=== PATIENT | male | born 1960 | race African-American/Black ===

== ENCOUNTER 2017-01-16 13:13 | Inpatient (IN) | payer MEDICARE, MEDICAID ==
[~2017-01-16] VITALS: Ht 170.2 cm; Wt 128.4 kg
[~2017-01-16 13:13] MED LIST: ATOR80TA PO; FLUT1DIS5 INH; FURO80TA3 PO; GABA-531 PO; LISI40TA4 PO; POTA8TAB8 PO; SITA1TBM4; TRAZ150T78 PO
[2017-01-16 15:14] LABS: BASOPHILS % 0.8 % (0.0-2.0); EOSINOPHILS % 2.7 % (0.0-5.0); HEMATOCRIT. 41.2 % (42.0-52.0); HEMOGLOBIN. 13.8 g/dL (14.0-18.0); LYMPHOCYTES % 19.4 % (20.0-50.0); MEAN CORPUSCULAR HEMOGLOBIN 28.3 pg (28.0-32.0); MEAN CORPUSCULAR VOLUME 84.6 fL (80.0-94.0); MONOCYTES % 10.6 % (2.0-8.0); NEUTROPHILS % 66.5 % (40.0-76.0); PLATELET 154 x1000/uL (130-400); PROTHROMBIN TIME 10.7 sec (9.4-11.6); RED BLOOD CELL COUNT 4.87 mill/uL (4.7-6.1); RED CELL DISTRIBUTION WIDTH 13.4 % (11.6-14.6)
[2017-01-16 15:20] LABS: CARBON DIOXIDE 32 mEq/L (21-32); CHLORIDE 102 mEq/L (98-107)
[2017-01-16 15:23] LABS: TROPONIN I < 0.02 ng/mL (0.00-0.04)
[2017-01-16] MEDS ORDERED: ASPIRIN 81MG TABLET PO ONE (15:30)
[2017-01-16] MEDS ORDERED: FUROSEMIDE 40MG/4ML VIAL IV ONE (15:30)
[2017-01-16] MEDS ORDERED: CEFTRIAXONE 1 G PREMIX 50 ML IV ONE (15:30)
[2017-01-16] MEDS ORDERED: IBUPROFEN 600MG TABLET PO PRN (16:00)
[2017-01-16] MEDS ORDERED: ACETAMINOPHEN 325MG TABLET PO PRN ×2 (16:00→19:15)
[2017-01-16 17:53] VITALS: BP 105/61
[2017-01-16] MEDS ORDERED: DOCUSATE SODIUM 100MG CAPSULE PO PRN (19:15)
[2017-01-16] MEDS ORDERED: LORAZEPAM 0.5MG TABLET PO PRN (19:15)
[2017-01-16] MEDS ORDERED: NA PHOS,M-B/NA PHOS,DI-BA ENEMA 118ML PR PRN (19:15)
[2017-01-16] MEDS ORDERED: MAGNESIUM/ALUMINUM HYDROXIDE/SIMETHICONE 30ML UDC PO PRN (19:15)
[2017-01-16] MEDS ORDERED: ACETAMINOPHEN 650MG/20.3ML UDC GT PRN (19:15)
[2017-01-16] MEDS ORDERED: ACETAMINOPHEN 650MG SUPP PR PRN (19:15)
[2017-01-16] MEDS ORDERED: DIPHENHYDRAMINE 50MG/ML VIAL IV PRN (19:15)
[2017-01-16] MEDS ORDERED: GUAIFENESIN 200MG/10ML SUGAR FREE UDC PO PRN (19:15)
[2017-01-16] MEDS ORDERED: ONDANSETRON HCL 4MG/2ML VIAL IV PRN (19:15)
[2017-01-16 19:45] VITALS: BP 163/85
[2017-01-16 20:00] VITALS: BP 163/85
[2017-01-16] MEDS ORDERED: ASPI-1159 PO (20:44)
[2017-01-16] MEDS ORDERED: CLOP75TA16 PO (20:44)
[2017-01-16] MEDS ORDERED: CARI350T PO (20:44)
[2017-01-16] MEDS ORDERED: HYDR-519 PO (20:44)
[2017-01-16] MEDS ORDERED: DEXTROSE 50% WATER 50ML SYRINGE IV PRN (21:00)
[2017-01-16] MEDS: GABAPENTIN 300MG CAPSULE PO SCH (21:28)
[2017-01-16] MEDS: CLONIDINE 0.1MG TABLET PO PRN (21:28)
[2017-01-16] MEDS: ATORVASTATIN CALCIUM 40MG TABLET PO SCH (21:28)
[2017-01-16] MEDS: BLOOD SUGAR DIAGNOSTIC STRIP TEST SCH (21:29)
[2017-01-16] MEDS: SODIUM CHLORIDE 0.9% INJ 3ML FLUSH IVF SCH (21:29)
[2017-01-16] MEDS: INSULIN LISPRO 100 UNITS/ML SUBCUT SCH (21:29)
[2017-01-16] MEDS: HYDROCODONE/ACETAMINOPHEN 10/325MG TABLET PO PRN (21:31)
[2017-01-16 23:34] LABS: CREATINE KINASE 370 IU/L (39-308); TROPONIN I < 0.02 ng/mL (0.00-0.04)
[2017-01-17] VITALS (7 sets, daily range): BP systolic 132–161; BP diastolic 82–102
[2017-01-17] MEDS ORDERED: ALPRAZOLAM 0.5 MG TABLET PO PRN
[2017-01-17 06:17] LABS: BASOPHILS % 1.2 % (0.0-2.0); EOSINOPHILS % 5.5 % (0.0-5.0); HEMATOCRIT. 43.9 % (42.0-52.0); HEMOGLOBIN. 14.4 g/dL (14.0-18.0); LYMPHOCYTES % 22.4 % (20.0-50.0); MEAN CORPUSCULAR VOLUME 85.4 fL (80.0-94.0); MEAN PLATELET VOLUME 11.6 fl (7.4-10.4); MONOCYTES % 12.9 % (2.0-8.0); PLATELET 168 x1000/uL (130-400); RED BLOOD CELL COUNT 5.14 mill/uL (4.7-6.1); RED CELL DISTRIBUTION WIDTH 13.4 % (11.6-14.6)
[2017-01-17] MEDS: SODIUM CHLORIDE 0.9% INJ 3ML FLUSH IVF SCH ×3 (06:36→21:29)
[2017-01-17 06:58] LABS: CLARITY URINE CLEAR (CLEAR); COLOR URINE YELLOW (YELLOW); GLUCOSE URINE 1+ (NEGATIVE); KETONES URINE TRACE (NEGATIVE); LEUKOCYTE ESTERASE URINE TRACE (NEGATIVE); NITRITE URINE NEGATIVE (NEGATIVE); OCCULT BLOOD URINE NEGATIVE (NEGATIVE); PH URINE 5.5 (4.5-8.0); PROTEIN URINE 2+ (NEGATIVE); SPECIFIC GRAVITY URINE 1.037 (1.005-1.030)
[2017-01-17] MEDS: BLOOD SUGAR DIAGNOSTIC STRIP TEST SCH ×4 (07:27→21:29)
[2017-01-17 07:51] LABS: CARBON DIOXIDE 32 mEq/L (21-32); CHLORIDE 101 mEq/L (98-107); CREATINE KINASE 357 IU/L (39-308); HDL CHOLESTEROL 54 mg/dL (40-59)
[2017-01-17 07:52] LABS: LDL CHOLESTEROL 89 mg/dL (5-100); TROPONIN I < 0.02 ng/mL (0.00-0.04)
[2017-01-17 08:11] LABS: *AMPHETAMINES SCREEN URINE NEGATIVE (NEGATIVE); *BARBITURATES SCREEN URINE NEGATIVE (NEGATIVE); *BENZODIAZEPINES SCREEN URINE NEGATIVE (NEGATIVE); *COCAINE SCREEN URINE NEGATIVE (NEGATIVE); CANNABINOID URINE SCREEN PRESUMTIVE POSITIVE (NEGATIVE); METHADONE URINE SCREEN NEGATIVE (NEGATIVE); OPIATES URINE SCREEN PRESUMTIVE POSITIVE (NEGATIVE); PHENCYCLIDINE URINE SCREEN NEGATIVE (NEGATIVE)
[2017-01-17] MEDS ORDERED: FUROSEMIDE 40MG/4ML VIAL IV SCH (09:00)
[2017-01-17] MEDS: ATORVASTATIN CALCIUM 40MG TABLET PO SCH ×2 (09:18→21:28)
[2017-01-17] MEDS: INSULIN LISPRO 100 UNITS/ML SUBCUT SCH ×4 (09:18→21:28)
[2017-01-17] MEDS: ASPIRIN 81MG EC TABLET PO SCH (09:18)
[2017-01-17] MEDS: LISINOPRIL 40MG TABLET PO SCH ×2 (09:19→17:02)
[2017-01-17] MEDS: CLOPIDOGREL 75MG TABLET PO SCH (09:19)
[2017-01-17] MEDS: POTASSIUM CHLORIDE 8 MEQ TABLET.SA PO SCH ×2 (09:19→17:02)
[2017-01-17] MEDS: HYDROCODONE/ACETAMINOPHEN 10/325MG TABLET PO PRN (09:25)
[2017-01-17] MEDS: CARISOPRODOL 350 MG TABLET PO PRN (09:26)
[2017-01-17] MEDS: GABAPENTIN 300MG CAPSULE PO SCH (21:28)
[2017-01-18 00:24] VITALS: BP 124/75
[2017-01-18 04:00] VITALS: BP 133/88
[2017-01-18] MEDS: SODIUM CHLORIDE 0.9% INJ 3ML FLUSH IVF SCH ×3 (06:22→21:18)
[2017-01-18] MEDS: BLOOD SUGAR DIAGNOSTIC STRIP TEST SCH ×4 (07:27→20:48)
[2017-01-18 08:00] VITALS: BP 140/85
[2017-01-18] MEDS: INSULIN LISPRO 100 UNITS/ML SUBCUT SCH ×4 (08:10→21:18)
[2017-01-18] MEDS: ASPIRIN 81MG EC TABLET PO SCH (08:41)
[2017-01-18] MEDS: LISINOPRIL 40MG TABLET PO SCH ×2 (08:41→17:05)
[2017-01-18] MEDS: POTASSIUM CHLORIDE 8 MEQ TABLET.SA PO SCH ×2 (08:41→16:58)
[2017-01-18] MEDS: FUROSEMIDE 40MG/4ML VIAL IV SCH ×2 (08:41→16:58)
[2017-01-18] MEDS: ATORVASTATIN CALCIUM 40MG TABLET PO SCH ×2 (08:41→20:46)
[2017-01-18] MEDS: CLOPIDOGREL 75MG TABLET PO SCH (08:41)
[2017-01-18 12:00] VITALS: BP 115/68
[2017-01-18] MEDS: IPRATROPIUM/ALBUTEROL 0.5-3(2.5)MG/3ML NEB INH PRN (15:26)
[2017-01-18 16:00] VITALS: BP 146/93
[2017-01-18 16:35] LABS: BASOPHILS % 0.9 % (0.0-2.0); EOSINOPHILS % 4.9 % (0.0-5.0); HEMATOCRIT. 41.7 % (42.0-52.0); HEMOGLOBIN. 14.1 g/dL (14.0-18.0); LYMPHOCYTES % 25.6 % (20.0-50.0); MEAN CORPUSCULAR HEMOGLOBIN 28.4 pg (28.0-32.0); MEAN CORPUSCULAR VOLUME 84.2 fL (80.0-94.0); MEAN PLATELET VOLUME 11.5 fl (7.4-10.4); MONOCYTES % 10.7 % (2.0-8.0); NEUTROPHILS % 57.9 % (40.0-76.0); PLATELET 158 x1000/uL (130-400); RED BLOOD CELL COUNT 4.95 mill/uL (4.7-6.1); RED CELL DISTRIBUTION WIDTH 13.5 % (11.6-14.6)
[2017-01-18] MEDS: SPIRONOLACTONE 25MG TABLET PO SCH (16:59)
[2017-01-18 20:05] VITALS: BP 151/83
[2017-01-18] MEDS: GABAPENTIN 300MG CAPSULE PO SCH (20:47)
[2017-01-19] MEDS: CARISOPRODOL 350 MG TABLET PO PRN ×2 (00:16→22:49)
[2017-01-19] MEDS: HYDROCODONE/ACETAMINOPHEN 10/325MG TABLET PO PRN ×2 (00:16→22:49)
[2017-01-19 00:17] VITALS: BP 145/88
[2017-01-19 04:25] VITALS: BP 163/86
[2017-01-19] MEDS: CLONIDINE 0.1MG TABLET PO PRN (04:39)
[2017-01-19] MEDS: SODIUM CHLORIDE 0.9% INJ 3ML FLUSH IVF SCH ×3 (05:40→22:00)
[2017-01-19] MEDS: BLOOD SUGAR DIAGNOSTIC STRIP TEST SCH ×4 (07:22→20:58)
[2017-01-19 08:00] VITALS: BP 139/92
[2017-01-19] MEDS: INSULIN LISPRO 100 UNITS/ML SUBCUT SCH ×4 (08:10→20:58)
[2017-01-19] MEDS: CLOPIDOGREL 75MG TABLET PO SCH (09:21)
[2017-01-19] MEDS: LISINOPRIL 40MG TABLET PO SCH ×2 (09:21→18:50)
[2017-01-19] MEDS: FUROSEMIDE 40MG/4ML VIAL IV SCH ×2 (09:21→18:50)
[2017-01-19] MEDS: ASPIRIN 81MG EC TABLET PO SCH (09:22)
[2017-01-19] MEDS: POTASSIUM CHLORIDE 8 MEQ TABLET.SA PO SCH ×2 (09:22→18:50)
[2017-01-19] MEDS: ATORVASTATIN CALCIUM 40MG TABLET PO SCH ×2 (09:22→20:58)
[2017-01-19] MEDS: SPIRONOLACTONE 25MG TABLET PO SCH (09:22)
[2017-01-19] MEDS: IPRATROPIUM/ALBUTEROL 0.5-3(2.5)MG/3ML NEB INH PRN (11:18)
[2017-01-19 12:00] VITALS: BP 133/79
[2017-01-19 13:06] LABS: BASOPHILS % 1.1 % (0.0-2.0); EOSINOPHILS % 4.6 % (0.0-5.0); HEMATOCRIT. 44.6 % (42.0-52.0); HEMOGLOBIN. 14.7 g/dL (14.0-18.0); LYMPHOCYTES % 28.1 % (20.0-50.0); MEAN CORPUSCULAR VOLUME 84.6 fL (80.0-94.0); MEAN PLATELET VOLUME 11.3 fl (7.4-10.4); MONOCYTES % 12.9 % (2.0-8.0); NEUTROPHILS % 53.3 % (40.0-76.0); PLATELET 151 x1000/uL (130-400); RED BLOOD CELL COUNT 5.27 mill/uL (4.7-6.1); RED CELL DISTRIBUTION WIDTH 13.6 % (11.6-14.6)
[2017-01-19 13:32] LABS: CARBON DIOXIDE 39 mEq/L (21-32); CHLORIDE 98 mEq/L (98-107)
[2017-01-19 16:00] VITALS: BP 126/90
[2017-01-19 19:12] LABS: BG BASE EXCESS 10.4 mmol/L (-2.0-2.0); BG CARBOXYHEMOGLOBIN 2.4 % (0.5-1.5); BG DEOXYHEMOGLOBIN 7.8 % (0.0-5.0); BG FRACTION INSPIRED OXYGEN 21; BG HCO3 ACT 37.4 mmol/L (22.0-26.0); BG METHEMOGLOBIN 0.2 % (0.0-1.5); BG OXYHEMOGLOBIN 89.6 % (94.0-97.0); BG PCO2 58.2 mmHg (35.0-45.0); BG PH 7.426 (7.350-7.450); BG PO2 61.4 mmHg (75.0-100.0); BG SAMPLE SITE RIGHT RADIAL; BG TOTAL HEMOGLOBIN 15.8 g/dL (12.0-18.0); BG VENT MODE ROOM AIR
[2017-01-19 20:00] VITALS: BP 135/85
[2017-01-19] MEDS: GABAPENTIN 300MG CAPSULE PO SCH (20:58)
[2017-01-20] VITALS (7 sets, daily range): BP systolic 113–172; BP diastolic 60–96
[2017-01-20] MEDS: SODIUM CHLORIDE 0.9% INJ 3ML FLUSH IVF SCH ×3 (05:40→21:21)
[2017-01-20] MEDS: INSULIN LISPRO 100 UNITS/ML SUBCUT SCH ×4 (06:45→21:00)
[2017-01-20] MEDS: BLOOD SUGAR DIAGNOSTIC STRIP TEST SCH ×4 (06:46→21:20)
[2017-01-20 07:46] LABS: CLARITY URINE CLEAR (CLEAR); COLOR URINE YELLOW (YELLOW); GLUCOSE URINE 3+ (NEGATIVE); KETONES URINE NEGATIVE (NEGATIVE); LEUKOCYTE ESTERASE URINE NEGATIVE (NEGATIVE); NITRITE URINE NEGATIVE (NEGATIVE); OCCULT BLOOD URINE NEGATIVE (NEGATIVE); PH URINE 5.5 (4.5-8.0); PROTEIN URINE 1+ (NEGATIVE); SPECIFIC GRAVITY URINE 1.031 (1.005-1.030)
[2017-01-20 08:06] LABS: *AMPHETAMINES SCREEN URINE NEGATIVE (NEGATIVE); *BARBITURATES SCREEN URINE NEGATIVE (NEGATIVE); *BENZODIAZEPINES SCREEN URINE PRESUMTIVE POSITIVE (NEGATIVE); *COCAINE SCREEN URINE NEGATIVE (NEGATIVE); CANNABINOID URINE SCREEN PRESUMTIVE POSITIVE (NEGATIVE); METHADONE URINE SCREEN NEGATIVE (NEGATIVE); OPIATES URINE SCREEN PRESUMTIVE POSITIVE (NEGATIVE); PHENCYCLIDINE URINE SCREEN NEGATIVE (NEGATIVE)
[2017-01-20] MEDS: LISINOPRIL 40MG TABLET PO SCH ×2 (09:19→17:41)
[2017-01-20] MEDS: FUROSEMIDE 40MG/4ML VIAL IV SCH ×2 (09:19→17:41)
[2017-01-20] MEDS: ATORVASTATIN CALCIUM 40MG TABLET PO SCH ×2 (09:19→21:20)
[2017-01-20] MEDS: SPIRONOLACTONE 25MG TABLET PO SCH (09:20)
[2017-01-20] MEDS: POTASSIUM CHLORIDE 8 MEQ TABLET.SA PO SCH ×2 (09:20→17:41)
[2017-01-20] MEDS: CLOPIDOGREL 75MG TABLET PO SCH (09:20)
[2017-01-20] MEDS: ASPIRIN 81MG EC TABLET PO SCH (09:20)
[2017-01-20] MEDS ORDERED: REGADENOSON 0.4 MG/5 ML IV NR (09:30)
[2017-01-20] MEDS: IPRATROPIUM/ALBUTEROL 0.5-3(2.5)MG/3ML NEB INH PRN ×2 (09:57→23:13)
[2017-01-20] MEDS ORDERED: REGADENOSON 0.4 MG/5 ML IV ONE (11:46)
[2017-01-20] MEDS: CARISOPRODOL 350 MG TABLET PO PRN (15:05)
[2017-01-20] MEDS: HYDROCODONE/ACETAMINOPHEN 10/325MG TABLET PO PRN (15:06)
[2017-01-20] MEDS: CLONIDINE 0.1MG TABLET PO PRN (15:06)
[2017-01-20 17:04] LABS: CREATINE KINASE 377 IU/L (39-308); CREATINE KINASE MB FRACTION 6.6 ng/mL (0.5-3.6); TROPONIN I < 0.02 ng/mL (0.00-0.04)
[2017-01-20 17:09] LABS: T4 FREE 1.09 ng/dL (0.76-1.46)
[2017-01-20] MEDS: GABAPENTIN 300MG CAPSULE PO SCH (21:20)
[2017-01-20] MEDS: FUROSEMIDE 40MG TABLET PO SCH (21:20)
[2017-01-21 00:02] VITALS: BP 126/101
[2017-01-21] MEDS: CARISOPRODOL 350 MG TABLET PO PRN (00:31)
[2017-01-21] MEDS: HYDROCODONE/ACETAMINOPHEN 10/325MG TABLET PO PRN (00:31)
[2017-01-21] MEDS: SODIUM CHLORIDE 0.9% INJ 3ML FLUSH IVF SCH (05:54)
[2017-01-21] MEDS: BLOOD SUGAR DIAGNOSTIC STRIP TEST SCH (07:40)
[2017-01-21] MEDS: IPRATROPIUM/ALBUTEROL 0.5-3(2.5)MG/3ML NEB INH PRN (07:52)
[2017-01-21 08:00] VITALS: BP 113/65
[2017-01-21] MEDS: INSULIN LISPRO 100 UNITS/ML SUBCUT SCH (08:10)
[2017-01-21] MEDS: CLOPIDOGREL 75MG TABLET PO SCH (08:50)
[2017-01-21] MEDS: ATORVASTATIN CALCIUM 40MG TABLET PO SCH (08:50)
[2017-01-21] MEDS: POTASSIUM CHLORIDE 8 MEQ TABLET.SA PO SCH (08:50)
[2017-01-21] MEDS: LISINOPRIL 40MG TABLET PO SCH (08:50)
[2017-01-21] MEDS: FUROSEMIDE 40MG TABLET PO SCH (08:51)
[2017-01-21] MEDS: SPIRONOLACTONE 25MG TABLET PO SCH (08:51)
[2017-01-21] MEDS ORDERED: ASPIRIN 81MG TABLET PO SCH (09:00)
[2017-01-21] MEDS ORDERED: CARISOPRODOL 350 MG TABLET PO PRN (10:00)
[2017-01-21 11:08] VITALS: BP 113/65
== END 2017-01-21 11:45 | disposition home or self-care (01) | DRG 292 ==
LOC: ER 13:13 → 7WST 15:48 → EDBEDREQ 15:51 → ENRESERV 15:56
PROVIDERS: ADMIT Family Medicine; ATTEND Family Medicine
DX: I11.0 Hypertensive heart disease with heart failure (principal); N39.0 Urinary tract infection, site not specified; Z68.41 Body mass index [BMI] 40.0-44.9, adult; L03.119 Cellulitis of unspecified part of limb; E11.9 Type 2 diabetes mellitus without complications; J44.9 Chronic obstructive pulmonary disease, unspecified; I50.9 Heart failure, unspecified; E66.01 Morbid (severe) obesity due to excess calories; I25.10 Atherosclerotic heart disease of native coronary artery without angina pectoris; G47.33 Obstructive sleep apnea (adult) (pediatric); F17.200 Nicotine dependence, unspecified, uncomplicated; E78.5 Hyperlipidemia, unspecified; E78.00 Pure hypercholesterolemia, unspecified; I25.2 Old myocardial infarction; Z79.899 Other long term (current) drug therapy
CPT/HCPCS: 36415; 36600; 71010; 78452; 80053; 80061; 80305; 81001; 82375; 82550; 82553; 82805; 82962; 83036; 83605; 83880; 84439; 84443; 84484; 85025; 85379; 85610; 87040; 87086; 93005; 93017; 93306; 93970; 94640; 94664; 96365; 97162; 97535; 99285; A9500; J0696; J1815; J1940; J2785; J7620

== ENCOUNTER 2017-04-13 11:07 | Emergency (ER) | payer MEDICARE, MEDICAID ==
[~2017-04-13] VITALS: Ht 172.7 cm; Wt 137.0 kg
[~2017-04-13 11:07] MED LIST changes: +ASPI-1159 PO; +CARI350T PO; +CLOP75TA16 PO; +HYDR-519 PO
[2017-04-13] MEDS: ALBUTEROL (0.083%) 2.5MG/3ML NEB HHN SCH ×3 (11:33→12:53)
[2017-04-13] MEDS ORDERED: METHYLPREDNISOLONE SOD SUCC 125 MG/2 ML VIAL IV STA (11:53)
[2017-04-13] MEDS ORDERED: IPRATROPIUM BROMIDE (0.02%) 0.5MG/2.5ML NEB HHN STA (11:53)
[2017-04-13 12:23] LABS: BASOPHILS % 0.5 % (0.0-2.0); EOSINOPHILS % 3.8 % (0.0-5.0); HEMATOCRIT. 44.1 % (42.0-52.0); HEMOGLOBIN. 14.8 g/dL (14.0-18.0); LYMPHOCYTES % 12.8 % (20.0-50.0); MEAN CORPUSCULAR HEMOGLOBIN 28.6 pg (28.0-32.0); MEAN CORPUSCULAR VOLUME 85.4 fL (80.0-94.0); MEAN PLATELET VOLUME 10.6 fl (7.4-10.4); MONOCYTES % 14.1 % (2.0-8.0); NEUTROPHILS % 68.8 % (40.0-76.0); PLATELET 187 x1000/uL (130-400); RED BLOOD CELL COUNT 5.16 mill/uL (4.7-6.1); RED CELL DISTRIBUTION WIDTH 13.3 % (11.6-14.6)
[2017-04-13 12:29] LABS: PROTHROMBIN TIME 10.5 sec (9.4-11.6)
[2017-04-13 12:39] LABS: CARBON DIOXIDE 36 mEq/L (21-32); CHLORIDE 100 mEq/L (98-107); TROPONIN I < 0.02 ng/mL (0.00-0.04)
[2017-04-13] MEDS ORDERED: ALBUTEROL (0.083%) 2.5MG/3ML NEB HHN STA (15:22)
[2017-04-13] MEDS ORDERED: MAGNESIUM 2 G PREMIX 50 ML IV ONE (15:30)
[2017-04-13 16:27] VITALS: BP 164/65
== END 2017-04-13 16:27 | disposition left against medical advice (07) ==
LOC: ER 11:37
DX: J44.1 Chronic obstructive pulmonary disease with (acute) exacerbation (principal); J06.9 Acute upper respiratory infection, unspecified; I11.0 Hypertensive heart disease with heart failure; I50.9 Heart failure, unspecified; E11.65 Type 2 diabetes mellitus with hyperglycemia; E78.00 Pure hypercholesterolemia, unspecified; Z79.02 Long term (current) use of antithrombotics/antiplatelets; I25.2 Old myocardial infarction; Z79.82 Long term (current) use of aspirin; Z95.5 Presence of coronary angioplasty implant and graft; R33.8 Other retention of urine
CPT/HCPCS: 36415; 51702; 71010; 80053; 83880; 84484; 85025; 85610; 93005; 94640; 96374; 99285; J2930; J3475; J7611; A4315

== ENCOUNTER → 2017-06-26 | Outpatient (CLI) | payer MEDICARE, MEDICAID | END | disposition home or self-care (01) | LOC: RAD 09:51 | PROVIDERS: ATTEND Neurological Surgery | DX: S13.140A Subluxation of C3/C4 cervical vertebrae, initial encounter (principal); M47.892 Other spondylosis, cervical region; M51.34 Other intervertebral disc degeneration, thoracic region; X58.XXXA Exposure to other specified factors, initial encounter; Y93.89 Activity, other specified; Y92.89 Other specified places as the place of occurrence of the external cause; Y99.8 Other external cause status | CPT/HCPCS: 72052; 72070; 72114 ==

== ENCOUNTER → 2017-07-06 | Outpatient (CLI) | payer MEDICARE, MEDICAID | END | disposition home or self-care (01) | LOC: MRI 08:35 | PROVIDERS: ATTEND Neurological Surgery | DX: M48.061 Spinal stenosis, lumbar region without neurogenic claudication (principal); M50.21 Other cervical disc displacement, high cervical region; M51.36 Other intervertebral disc degeneration, lumbar region; Z98.1 Arthrodesis status; M47.894 Other spondylosis, thoracic region; M48.04 Spinal stenosis, thoracic region; M48.02 Spinal stenosis, cervical region; M50.221 Other cervical disc displacement at C4-C5 level | CPT/HCPCS: 72141; 72146; 72148 ==

== ENCOUNTER 2019-01-30 22:08 | Inpatient (IN) | payer MEDICARE, MEDICAID ==
[~2019-01-30] VITALS: Ht 175.3 cm; Wt 134.7 kg
[~2019-01-30 22:08] MED LIST changes: -ASPI-1159 PO; +ASPI-1393 PO; +CARI-166 PO; -CARI350T PO; -CLOP75TA16 PO; +CLOP75TA4 PO
[2019-01-30] MEDS ORDERED: ALBUTEROL (0.083%) 2.5MG/3ML NEB HHN STA (22:23)
[2019-01-30] MEDS ORDERED: IPRATROPIUM BROMIDE (0.02%) 0.5MG/2.5ML NEB HHN STA (22:23)
[2019-01-30 23:07] LABS: HEMATOCRIT. 45.1 % (42.0-52.0); HEMOGLOBIN. 14.9 g/dL (14.0-18.0); MEAN CORPUSCULAR HEMOGLOBIN 27.7 pg (28.0-32.0); MEAN CORPUSCULAR VOLUME 83.7 fL (80.0-94.0); MEAN PLATELET VOLUME 10.9 fl (7.4-10.4); PLATELET 198 x1000/uL (130-400); RED BLOOD CELL COUNT 5.39 mill/uL (4.7-6.1); RED CELL DISTRIBUTION WIDTH 14.7 % (11.6-14.6)
[2019-01-30 23:13] LABS: CHLORIDE 104 mEq/L (98-107)
[2019-01-31] MEDS ORDERED: METHYLPREDNISOLONE SOD SUCC 125 MG/2 ML VIAL IV ONE (00:45)
[2019-01-31 00:57] LABS: PLATELET ESTIMATE NORMAL
[2019-01-31] MEDS ORDERED: ALBUTEROL (0.083%) 2.5MG/3ML NEB HHN STA (01:07)
[2019-01-31] MEDS ORDERED: LORAZEPAM 1MG TABLET PO ONE (01:15)
[2019-01-31] MEDS ORDERED: LORAZEPAM 2MG/ML CPJ IV ONE (03:00)
[2019-01-31] MEDS ORDERED: ENOXAPARIN 40MG/0.4ML SYR SUBCUT SCH (06:15)
[2019-01-31] MEDS ORDERED: ONDANSETRON HCL 4MG/2ML INJ IV PRN (06:15)
[2019-01-31] MEDS ORDERED: DOCUSATE SODIUM 100MG CAPSULE PO PRN (06:15)
[2019-01-31] MEDS ORDERED: IPRATROPIUM/ALBUTEROL 0.5-3(2.5)MG/3ML NEB NEB PRN (06:15)
[2019-01-31] MEDS ORDERED: MAGNESIUM/ALUMINUM HYDROXIDE/SIMETHICONE 30ML UDC PO PRN (06:15)
[2019-01-31] MEDS ORDERED: ACETAMINOPHEN 325MG TABLET PO PRN (06:15)
[2019-01-31] MEDS ORDERED: CLONIDINE 0.1MG TABLET PO PRN (06:15)
[2019-01-31] MEDS: BLOOD SUGAR DIAGNOSTIC STRIP TEST SCH ×4 (08:45→20:53)
[2019-01-31] MEDS ORDERED: DEXTROSE 50% WATER 50ML SYRINGE IV PRN (08:45)
[2019-01-31] MEDS: IPRATROPIUM/ALBUTEROL 0.5-3(2.5)MG/3ML NEB NEB SCH ×2 (08:49→14:40)
[2019-01-31 09:00] VITALS: BP 137/87
[2019-01-31] MEDS ORDERED: CARISOPRODOL 350 MG TABLET PO PRN (10:30)
[2019-01-31] MEDS: AMLODIPINE 10MG TABLET PO SCH (10:39)
[2019-01-31] MEDS: ENOXAPARIN 40MG/0.4ML SYR SUBCUT SCH ×2 (10:39→21:09)
[2019-01-31] MEDS: METHYLPREDNISOLONE SOD SUCC 125 MG/2 ML VIAL IV SCH ×3 (10:40→19:40)
[2019-01-31] MEDS: NICOTINE 21MG PATCH TD SCH (10:42)
[2019-01-31] MEDS: ASPIRIN 81MG EC TABLET PO SCH (10:42)
[2019-01-31] MEDS: CLOPIDOGREL 75MG TABLET PO SCH (10:43)
[2019-01-31] MEDS: INSULIN LISPRO 100 UNITS/ML SUBCUT SCH ×4 (10:45→21:30)
[2019-01-31] MEDS: GUAIFENESIN 200MG/10ML SUGAR FREE UDC PO PRN (11:30)
[2019-01-31 12:00] VITALS: BP 142/85
[2019-01-31] MEDS: LEVOFLOXACIN 500MG PREMIX 100 ML IV SCH (13:41)
[2019-01-31] MEDS: HYDROCODONE/ACETAMINOPHEN 5/325MG TABLET PO PRN (14:09)
[2019-01-31 16:00] VITALS: BP 160/80
[2019-01-31 20:00] VITALS: BP 164/88
[2019-01-31] MEDS ORDERED: IBUP-2030 MT (20:45)
[2019-01-31] MEDS ORDERED: CHLO25TA2 MT (20:45)
[2019-01-31] MEDS ORDERED: BUPR100T13 PO (20:45)
[2019-01-31] MEDS ORDERED: TAMS-11 MT (20:45)
[2019-01-31] MEDS ORDERED: GLIP10TA10 MT (20:45)
[2019-01-31] MEDS: TRAZODONE HCL 50MG TABLET PO SCH (21:10)
[2019-01-31] MEDS: FUROSEMIDE 40MG TABLET PO SCH (21:10)
[2019-01-31] MEDS: GABAPENTIN 300MG CAPSULE PO SCH (21:10)
[2019-01-31] MEDS: LISINOPRIL 40MG TABLET PO SCH (21:21)
[2019-02-01] VITALS (7 sets, daily range): BP systolic 93–128; BP diastolic 50–85
[2019-02-01] MEDS: METHYLPREDNISOLONE SOD SUCC 125 MG/2 ML VIAL IV SCH ×2 (00:32→06:19)
[2019-02-01] MEDS: HYDROCODONE/ACETAMINOPHEN 5/325MG TABLET PO PRN ×2 (00:46→09:29)
[2019-02-01] MEDS: IPRATROPIUM/ALBUTEROL 0.5-3(2.5)MG/3ML NEB NEB SCH ×4 (01:08→20:52)
[2019-02-01] MEDS: BLOOD SUGAR DIAGNOSTIC STRIP TEST SCH ×4 (06:05→20:20)
[2019-02-01] MEDS: INSULIN LISPRO 100 UNITS/ML SUBCUT SCH ×4 (06:34→21:00)
[2019-02-01 06:52] LABS: BASOPHILS % 0.1 % (0.0-2.0); HEMATOCRIT. 39.4 % (42.0-52.0); HEMOGLOBIN. 12.8 g/dL (14.0-18.0); LYMPHOCYTES % 7.3 % (20.0-50.0); MEAN CORPUSCULAR HEMOGLOBIN 27.3 pg (28.0-32.0); MEAN CORPUSCULAR VOLUME 83.9 fL (80.0-94.0); MEAN PLATELET VOLUME 10.7 fl (7.4-10.4); MONOCYTES % 5.6 % (2.0-8.0); PLATELET 176 x1000/uL (130-400); RED CELL DISTRIBUTION WIDTH 14.1 % (11.6-14.6)
[2019-02-01 07:17] LABS: CHLORIDE 102 mEq/L (98-107)
[2019-02-01 07:34] LABS: LDL CHOLESTEROL 154 mg/dL (5-100)
[2019-02-01 07:35] LABS: HDL CHOLESTEROL 52 mg/dL (40-59)
[2019-02-01] MEDS ORDERED: ASPIRIN 81MG EC TABLET PO SCH (09:00)
[2019-02-01] MEDS: FUROSEMIDE 40MG TABLET PO SCH ×2 (09:06→22:24)
[2019-02-01] MEDS: CLOPIDOGREL 75MG TABLET PO SCH (09:06)
[2019-02-01] MEDS: AMLODIPINE 10MG TABLET PO SCH (09:06)
[2019-02-01] MEDS: ENOXAPARIN 40MG/0.4ML SYR SUBCUT SCH ×2 (09:06→22:24)
[2019-02-01] MEDS: ASPIRIN 81MG EC TABLET PO SCH (09:06)
[2019-02-01] MEDS: NICOTINE 21MG PATCH TD SCH (09:08)
[2019-02-01] MEDS: LISINOPRIL 40MG TABLET PO SCH ×2 (09:11→20:33)
[2019-02-01] MEDS: LEVOFLOXACIN 500MG PREMIX 100 ML IV SCH (09:15)
[2019-02-01] MEDS: GUAIFENESIN 200MG/10ML SUGAR FREE UDC PO PRN ×2 (11:20→23:40)
[2019-02-01] MEDS: GABAPENTIN 300MG CAPSULE PO SCH (22:24)
[2019-02-01] MEDS: METHYLPREDNISOLONE SOD SUCC 40 MG/ML VIAL IV SCH (23:24)
[2019-02-01] MEDS: TRAZODONE HCL 50MG TABLET PO SCH (23:34)
[2019-02-02] MEDS: IPRATROPIUM/ALBUTEROL 0.5-3(2.5)MG/3ML NEB NEB SCH ×2 (01:20→09:39)
[2019-02-02] MEDS: HYDROCODONE/ACETAMINOPHEN 5/325MG TABLET PO PRN (01:53)
[2019-02-02 04:00] VITALS: BP 122/86
[2019-02-02] MEDS: INSULIN LISPRO 100 UNITS/ML SUBCUT SCH (06:30)
[2019-02-02] MEDS: BLOOD SUGAR DIAGNOSTIC STRIP TEST SCH (06:30)
[2019-02-02 08:00] VITALS: BP 110/72
[2019-02-02] MEDS: ENOXAPARIN 40MG/0.4ML SYR SUBCUT SCH ×2 (09:00→09:30)
[2019-02-02] MEDS: ASPIRIN 81MG EC TABLET PO SCH (09:28)
[2019-02-02] MEDS: CLOPIDOGREL 75MG TABLET PO SCH (09:28)
[2019-02-02] MEDS: FUROSEMIDE 40MG TABLET PO SCH (09:29)
[2019-02-02] MEDS: LISINOPRIL 40MG TABLET PO SCH (09:29)
[2019-02-02] MEDS: METHYLPREDNISOLONE SOD SUCC 40 MG/ML VIAL IV SCH (09:32)
[2019-02-02] MEDS: NICOTINE 21MG PATCH TD SCH (09:32)
[2019-02-02 11:14] VITALS: BP 110/72
== END 2019-02-02 15:15 | disposition home or self-care (01) | DRG 189 ==
LOC: ER 22:08 → 8WST 01-31 00:48 → SUPCPDRO 01-31 06:14 → ENRESERV 01-31 07:00
PROVIDERS: ADMIT Hospitalist; ATTEND Hospitalist
DX: J96.20 Acute and chronic respiratory failure, unspecified whether with hypoxia or hypercapnia (principal); J44.1 Chronic obstructive pulmonary disease with (acute) exacerbation; I50.32 Chronic diastolic (congestive) heart failure; E11.9 Type 2 diabetes mellitus without complications; I50.9 Heart failure, unspecified; I11.0 Hypertensive heart disease with heart failure; I25.10 Atherosclerotic heart disease of native coronary artery without angina pectoris; F17.210 Nicotine dependence, cigarettes, uncomplicated; E78.5 Hyperlipidemia, unspecified; E78.00 Pure hypercholesterolemia, unspecified; Z82.49 Family history of ischemic heart disease and other diseases of the circulatory system; Z95.5 Presence of coronary angioplasty implant and graft; Z79.899 Other long term (current) drug therapy; Z79.82 Long term (current) use of aspirin; Z71.6 Tobacco abuse counseling
CPT/HCPCS: 36415; 71045; 80061; 82962; 83880; 84484; 93005; 93306; 93970; 94640; 99285; J1650; J1815; J1956; J2060; J2920; J2930; J7611; J7620